=== PATIENT | female | born 1970 | race Caucasian/White ===

== ENCOUNTER 2018-08-14 06:13 | Day surgery (SDC) | payer BC, SELFPAY ==
[2018-07-10 13:17] VITALS: BMI 43.7
[2018-08-14 06:32] VITALS: BP 147/94; PULSE 78; RESP 16; TEMP 36.6; O2SAT 97; BMI 47.4
[2018-08-14 06:41] LABS: Internal QC Validated? YES +Cl - CLEAR BKGD; Pregnancy, Urine Negative Negative
--- NOTE | 2018-08-14 07:47 | HP.PCM_ITS ---
Problem List (1) History of colon cancer Status: Acute Comment: 2013 History of Present Illness Date of Admission: 08/14/18 The patient is a 47 year old F for evaluation for colonoscopy. Patient had a endoscopy back in 2002 she was noticed to have a obstructing colon lesion in the distal transverse colon she subsequently underwent a extended right hemicolectomy with ileal descending colon anastomosis en bloc resection of omentum and a loop ileostomy. She has since had her loop ileostomy taken down she is been moving her bowels normally but she has never had a repeat colonoscopy since 2012. She was being seen by her oncology physician who subsequently recommended to see me to obtain a colonoscopy. She has been moving her bowels normally she does not experience diarrhea he has had no fluctuations in her weight. She had a difficult bowel prep and needed to use Phenergan to control her nausea and vomiting. She states that her bowel movements have been yellow liquid now. Past Medical History Past Medical History (Chronic Problems): Chronic Problems (Last Reviewed 07/10/18 @ 13:23 by Nathan Newmna MD) Intertriginous dermatitis associated with moisture (Chronic) Morbid obesity (Chronic) Frequent headaches (Chronic) Anxiety (Chronic) Anemia (Chronic) Medical History: Medical History (Last Reviewed 07/10/18 @ 13:23 by Nathan Newman MD) History of pneumonia (Acute) Z87.01 History of blood transfusion (Acute) Z92.89 with cancer treatment Frequent headaches (Chronic) R51 History of colon cancer (Acute) Z85.038 2012 Allergies No Known Allergies Allergy (Verified 07/21/18 09:32) Home Medications: Ambulatory Orders Medication Instructions Recorded acetaminophen 325 mg tablet 650 mg PO Q4H PRN 07/19/17 Nystatin [Nyata] 1 applic TOPICAL BID PRN 07/21/18 Surgical History: Surgical History (Last Reviewed 07/10/18 @ 13:23 by Nathan Newman MD) History of colon resection Z98.890, Z90.49 2013 History of hernia repair Z98.890, Z87.19 2015 history of ostomy reversal 2014 Surgical History: noncontributory Smoking Status: Never smoker Tobacco Use: Non-smoker - *Family History Maternal Family History: Family History (Last Reviewed 07/10/18 @ 13:23 by Nathan Newman MD) Mother Hypertension Father Diabetes Hypertension Liver disease Grandmother Asthma Grandfather Heart disease Myocardial infarction, Onset Age: 60 Review of Systems Constitutional: Denies: Chills, Fever, Weight Change Cardiovascular: Denies: Chest Pain, Chest Pressure, Chest Tightness, Palpitati ons Respiratory: Denies: Cough, Hemoptysis, Shortness of breath at rest, Shortness of breath upon exertion, Wheezing Gastrointestinal: Denies: Abdominal Pain, Constipation, Diarrhea, Hematemesis, Nausea, Melena, Vomiting VTE Information - Inpt Only VTE Present on Admission: No VTE Mechan Device Prophylaxis: None VTE Pharm Prophylaxis ordered?: No Reason prophylaxis not ordered:: Treatment Not Indicated - Physical Exam General: Alert, Oriented x3 Lungs: Clear to auscultation Cardiovascular: Regular rate, Regular Rhythm, No murmurs Abdomen: Bowel Sounds Present, Soft, Non Tender, Non-Distended Vital Signs Temp Pulse Resp BP Pulse Ox 97.8 F 78 16 147/94 H 97 08/14/18 06:32 08/14/18 06:32 08/14/18 06:32 08/14/18 06:32 08/14/18 06:32 Oxygen Delivery Method Room Air Weight: 321 lb 3.416 oz Body Mass Index (BMI) 47.4 Laboratory Tests Past 24 Hrs 08/14/18 06:25 Urine Test Negative Assessment/Plan All Active Problems (Last Reviewed 07/10/18 @ 13:23 by Nathan Newman MD) History of pneumonia (Acute) History of blood transfusion (Acute) History of colon cancer (Acute) Plan will be to perform a colonoscopy. Risk benefits have been reviewed with the patient and the patient agrees to proceed.
[2018-08-14 07:51] VITALS: BP 131/73; BP 147/94; PULSE 76; RESP 18; TEMP 35.9; O2SAT 97
--- NOTE | 2018-08-14 07:52 | OP.ENDO_ITS ---
08/14/2018 Yrn Weinberg MD [address] [place] [address] [place] [address] Re : Colonoscopy procedure for Priscilla Manzo Dear Dr. Weinberg This procedure was performed on July. My impressions and recommendations are as follows: Impressions : - Diverticulosis in the sigmoid colon. - Non-bleeding internal hemorrhoids. - The examination was otherwise normal. - No specimens collected. Recommendations : - Discharge patient to home. - Resume previous diet. - Continue present medications. - Await pathology results. - Repeat colonoscopy in 5 years for surveillance. - Return to referring physician at appointment to be scheduled. My findings are described in the full procedure note, which is enclosed. If I can be of further assistance, please feel free to contact me at Doctor phone number(s): , Fax: [phone], Work: . Sincerely, MD Nathan De La O MD 08/14/2018 7:52:05 AM This report has been signed electronically.
[2018-08-14 07:55] VITALS: BP 123/70; BP 147/94; PULSE 73; RESP 18; O2SAT 95
[2018-08-14 08:00] VITALS: BP 131/70; BP 147/94; PULSE 72; RESP 18; O2SAT 95
[2018-08-14 08:05] VITALS: BP 117/65; BP 147/94; PULSE 70; RESP 18; TEMP 36.7; O2SAT 98
[2018-08-14 08:32] VITALS: BP 147/94
== END 2018-08-14 08:40 | disposition home or self-care (01) ==
LOC: EN 06:15 → AC 06:16 → ACINP 09:21
PROVIDERS: Anesthesiology; Family Provider Internal Medicine; PCP Internal Medicine; Referring Provider Surgery; Visit Provider Surgery
PROC: 0DJD8ZZ Inspection of Lower Intestinal Tract, Via Natural or Artificial Opening Endoscopic (ICD-10-PCS; CPT 45378; principal; 2018-08-14 07:25)
DX: Z85.038 Personal history of other malignant neoplasm of large intestine (principal); K57.30 Diverticulosis of large intestine without perforation or abscess without bleeding; K64.8 Other hemorrhoids; C78.7 Secondary malignant neoplasm of liver and intrahepatic bile duct; E66.01 Morbid (severe) obesity due to excess calories; Z68.42 Body mass index [BMI] 45.0-49.9, adult; Z90.49 Acquired absence of other specified parts of digestive tract; Z98.0 Intestinal bypass and anastomosis status
CPT/HCPCS: G0105; 81025; J7120; A4216; J1610

== ENCOUNTER 2018-11-13 15:35 | Emergency (ER) | payer BC, SELFPAY ==
[2018-11-13 15:36] VITALS: BP 158/86; PULSE 71; RESP 16; TEMP 36.7; O2SAT 96; BMI 45.1
[2018-11-13 15:43] VITALS: RESP 18
--- NOTE | 2018-11-13 15:49 | CT_ITS ---
STUDY: CT ABDOMEN AND PELVIS WITH CONTRAST REASON FOR EXAM: Female, 47 years old. Bilateral flank pain. RADIATION DOSAGE (If Supplied By Facility): CTDIvol = ( 13.75 ) mGy, DLP = ( 1457.56 ) mGycm TECHNIQUE: Transaxial images were obtained from the dome of the diaphragm to the symphysis pubis without oral contrast. 100mL IV/Oral Isovue 300 was administered. Sagittal and coronal images were reconstructed. Individualized dose optimization techniques were used for this CT. COMPARISON: October 07, 2013 FINDINGS: There is a granuloma within the right middle lobe. The visualized portions of the heart are within normal limits. Normal liver. There are stable surgical clips adjacent to the posterior and lateral aspect of the liver. There are surgical clips in the gallbladder fossa consistent with a prior cholecystectomy. Normal spleen. Normal pancreas. Normal bilateral adrenal glands. Normal right kidney. There is a too small to characterize low-attenuation focus within the anterior left kidney that likely reflect underlying cyst. Normal visualized stomach. Normal small intestine. There are anastomotic sutures noted within the region of the descending sigmoid colon junction. There is evidence of a prior partial colectomy. Normal abdominal aorta. Normal inferior vena cava. Normal retroperitoneum. Normal urinary bladder. Within the left adnexa there is a 2.5 x 3.7 x 3.7 cm well-circumscribed low-attenuation rounded focus. There are postsurgical changes along the anterior abdominal wall. There is no adjacent stranding. There are diffuse degenerative changes of the visualized lumbar spine. CT/Abdomen/Pelvis WITH Contrast IMPRESSION: No acute intra-abdominal process. Postsurgical changes along the anterior abdominal wall. 2.5 x 3.7 x 3.7 cm left adnexal cystic focus, consider pelvic ultrasound for further evaluation. Electronically Signed: Alethea Ortiz MD at 18:07 EDT Tel , Service support ,
--- NOTE | 2018-11-13 15:52 | ED.VIS.GEN ---
History of Present Illness Chief Complaint: Abd Pain Informant: Patient Onset: Yesterday Narrative: Left upper quadrant abdominal pain bilateral flank pain since yesterday. No nausea or vomiting. No diarrhea. History of colon cancer 5 years ago with partial colectomy and chemotherapy. Reports 2 weeks ago was at [place], had abdominal pain diagnosed with free air in abdomen. She was sent to [facility] due to physicians being there. They reviewed the images, they could not find the region of perforation, she was medically managed on antibiotics. She is currently on Augmentin for total 14 days. Denies fever. Pain currently 6 out of 10. States going on vacation tomorrow, states pain is not as severe as 2 weeks ago. Does complain of urine frequency. Prior similar symptoms: Yes Past Medical History - Allergies and Home Meds Allergies/Adverse Reactions: Allergies No Known Allergies Allergy (Verified 11/13/18 15:38) Primary Care Physician: Yrn Weinberg MD [Primary Care Provider] - Surgical History: noncontributory Smoking Status: Never smoker Review of Systems General: Denies: Chills, Fever, Sweats Eyes: Denies: Visual changes - bilaterally, Diplopia ENT: Denies: Rhinorrhea, Sore throat Cardiovascular: Denies: Chest pain, Palpitations Respiratory: Denies: Dyspnea, Cough, Dyspnea on exertion Gastrointestinal: Reports: Abdominal pain. Denies: Nausea, Vomiting, Diarrhea, Melena, Hematochezia Genitourinary: Reports: Frequency. Denies: Dysuria, Hematuria Musculoskeletal: Reports: Back pain. Denies: Extremity Pain Skin: Denies: Rash, Wounds Neurological: Denies: Headache, Weakness, Numbness Physical Exam Vital Signs/Narrative: Vital Signs Temp Pulse Resp BP Pulse Ox 11/13/18 15:43 18 11/13/18 15:36 98.0 F 71 16 158/86 H 96 Inital Vital Signs reviewed: Yes General: Well nourished, Well developed, No Acute Distress Head: Normocephalic, Atraumatic Eyes: Perrl, EOMI ENT: Moist mucous membranes, No rhinorrhea Neck: Supple, Nontender Cardiovascular: Regular rate, Regular rhythm, No murmurs Respiratory: No distress, CTA bilaterally, Chest nontender Abdomen: Soft, Nontender, Nondistended, Normal bowel sounds. Negative for: Guarding - Is worrisome for cancer, Rebound tenderness Back: Nontender, Normal Inspection, - - No rash 71 Extremities: Nontender, No edema Skin: Normal color, No rash Neurological: Alert, Oriented x3, Cranial nerves II-XII grossly intact, Normal Strength, Normal Sensation Psychological: Normal affect, Normal Mood Diagnostic/Tx/Re-eval Abnormal Lab Results 11/13/18 11/13/18 11/13/18 16:15 16:15 16:15 WBC 7.4 RBC 4.86 Hgb 12.5 Hct 39.8 MCV 81.9 MCH 25.7 L MCHC 31.4 L RDW 14.6 RDW Differential 42.7 Plt Count 191 MPV 12.4 H Immature Gran % (Auto) 0.100 Neut % (Auto) 75.2 H Lymph % (Auto) 16.1 L [place] % (Auto) 5.9 Eos % (Auto) 2.3 Baso % (Auto) 0.4 Absolute Neuts (auto) 5.6 Absolute Lymphs (auto) 1.20 Total Counted Not Reportable Sodium 138 Potassium 4.1 Chloride 107 Carbon Dioxide 27.0 Anion Gap 4 L BUN 14 Creatinine 0.68 Estim Creat Clear Calc 112.98 Est GFR (MDRD) Af Amer 119 Est GFR (MDRD) Non-Af 99 BUN/Creatinine Ratio 20.5 H Glucose 92 Lactic Acid Calcium 9.2 Total Bilirubin 0.40 AST 19 ALT 32 Alkaline Phosphatase 76 Total Protein 8.1 Albumin 3.6 Globulin 4.5 H Albumin/Globulin Ratio 0.8 L Lipase 84 Urine Color Yellow Urine Clarity Clear Urine pH 6.0 Ur Specific [place] 1.020 Urine Protein 15 H Urine Glucose (UA) Normal Urine Ketones Negative Urine Occult Blood 10 H Urine Nitrite Negative Urine Bilirubin Negative Urine Urobilinogen Normal Ur Leukocyte Esterase 100 H Urine RBC 0-5 SEEN Urine WBC 0-5 SEEN Ur Squamous Epith Cells 0-5 SEEN Urine Bacteria 1+ Hyaline Casts 0-5 SEEN Urine Mucus 1+ 11/13/18 16:25 WBC RBC Hgb Hct MCV MCH MCHC RDW RDW Differential Plt Count MPV Immature Gran % (Auto) Neut % (Auto) Lymph % (Auto) [place] % (Auto) Eos % (Auto) Baso % (Auto) Absolute Neuts (auto) Absolute Lymphs (auto) Total Counted Sodium Potassium Chloride Carbon Dioxide Anion Gap BUN Creatinine Estim Creat Clear Calc Est GFR (MDRD) Af Amer Est GFR (MDRD) Non-Af BUN/Creatinine Ratio Glucose Lactic Acid 0.8 Calcium Total Bilirubin AST ALT Alkaline Phosphatase Total Protein Albumin Globulin Albumin/Globulin Ratio Lipase Urine Color Urine Clarity Urine pH Ur Specific [place] Urine Protein Urine Glucose (UA) Urine Ketones Urine Occult Blood Urine Nitrite Urine Bilirubin Urine Urobilinogen Ur Leukocyte Esterase Urine RBC Urine WBC Ur Squamous Epith Cells Urine Bacteria Hyaline Casts Urine Mucus CT abdomen pelvis with p.o. and IV contrast: No free air, there is a 3.7 x 3.7 x 2.5 cm left adnexal cyst. - Medical Decision Making Patient nonsurgical abdomen, vital signs stable. With patient reported recent history of intra-abdominal free air on oral antibiotics. Work-up initiated labs stable lactic acid normal contrast CT negative for free air did note left adnexal cyst region. Patient nontender in this region. She does have a rail layer. Discussed monitoring for signs and symptoms and pain in that area. Her urine did note leukocytes and bacteria I sent this for culture with patient currently on Augmentin, will hold antibiotics at this time pending culture results. She will finish her antibiotics. She will follow-up as an outpatient. All questions were answered. ED Disposition - Plan for ED Patient: Disposition: Home or Assisted Living Diagnosis: Abdominal pain Instructions: ED Abdominal Pain Unkn Cause Referrals: Yrn Weinberg MD [Primary Care Provider] - 5-7 Days Additional Instructions: 3.7 x 3.7 x 2.5 cm left adnexal cyst structure. Follow-up with your rail layer and monitoring for pain left pelvis. Abdominal scan negative for any free air. Finish your antibiotics her urine was sent for culture pending results.
[2018-11-13] MEDS: 0.9% Normal Saline 1,000 ML 125 ML IV (16:32)
[2018-11-13 16:40] LABS: Absolute Neutrophil Count 5.6 X10^3/uL (2.0-7.7); Basophil# 0.03 X10^3/uL; Basophil% 0.4 % (0-1); Eosinophil# 0.17 X10^3/uL; Eosinophils% 2.3 % (0-5); Hematocrit 39.8 % (37-47); Hemoglobin 12.5 g/dl (12.0-15.0); Lymphocyte % 16.1 % (19-41); Mean Corp Hgb Conc 31.4 g/gl (32-36); Mean Corpuscular Hgb 25.7 pg (27.0-32.0); Mean Corpuscular Volume 81.9 fL (81-99); Mean Platelet Vol. 12.4 fl (6.2-12.0); Monocyte# 0.44 X10^3/uL; Monocyte% 5.9 % (0-10); Neutrophil # 5.59 X10^3/uL (2.7-7.7); Neutrophil % 75.2 % (47-70); Platelet Count 191 K/mm3 (150-450); RBC Distribution Width CV 14.6 % (11.6-14.6); RBC Distribution Width SD 42.7 fl (35.1-43.9); Red Blood Count 4.86 M/mm3 (4.2-5.4); White Blood Count 7.4 K/mm3 (4.4-11.0)
[2018-11-13 16:41] LABS: Color, Urine Yellow (Yellow); Glucose, Dipstick Normal (Normal); Ketone-Dipstick Negative (Negative); Leukocyte Esterase-Dipstick 100 /ul (Negative); Nitrite-Dipstick Negative (Negative); Occult Blood-Urine 10 /ul (Negative); Protein-Dipstick 15 mg/dl (Negative); Urine Bilirubin Dipstick Negative (Negative); Urine Clarity Clear (Clear); Urine Urobilinogen Normal (Normal)
[2018-11-13 16:42] LABS: POSITIVE COUNT NO; POSITIVE DIFFERENTIAL NO; POSITIVE MORPHOLOGY NO
[2018-11-13 16:53] LABS: Red Blood Cells-Urine 0-5 SEEN /hpf (0-5)
[2018-11-13 16:54] LABS: ALB/GLOB Ratio 0.8 RATIO (0.9-2.4); AST(SGOT) 19 U/L (15-37); Alanine Aminotransfer ALT/SGPT 32 U/L (13-56); Albumin, Serum 3.6 g/dL (3.2-5.0); Alkaline Phosphatase 76 U/L (45-117); Anion Gap 4 (5-15); BUN 14 mg/dL (7-18); BUN/Creat Ratio 20.5 RATIO (10-20); Bacteria 1+ /hpf (None Seen); Calcium,Total 9.2 mg/dL (8.5-10.1); Chloride 107 mmol/L (98-107); Creatinine, Serum 0.68 mg/dL (0.55-1.02); EST Glomerular Filtration Rate 99 mL/min (>60); Est Glom Filt Rate - Afr Amer 119 mL/min (>60); Estimated Creatinine Clearance 112.98 ml/min; Globulin 4.5 g/dL (2.2-4.2); Glucose 92 mg/dL (74-106); Hyaline Cast 0-5 SEEN /lpf (0-5); Lipase 84 U/L (73-393); Mucous, Urine 1+ /hpf (<or=2+); Potassium 4.1 mmol/L (3.5-5.1); Protein, Total 8.1 g/dL (6.4-8.2); Sodium Level 138 mmol/L (136-145); Squamous Epithelial Cells - UA 0-5 SEEN /hpf (5-10); White Blood Cells 0-5 SEEN /hpf (0-5)
[2018-11-13 16:58] LABS: Lactic Acid 0.8 mmol/L (0.4-2.0)
[2018-11-13 18:36] VITALS: BP 153/83; PULSE 81; RESP 16; O2SAT 95
== END 2018-11-13 18:37 | disposition home or self-care (01) ==
PROVIDERS: Emergency Provider Emergency Medicine; Family Provider Internal Medicine; PCP Internal Medicine
DX: R10.9 Unspecified abdominal pain (principal); N83.8 Other noninflammatory disorders of ovary, fallopian tube and broad ligament; Z85.038 Personal history of other malignant neoplasm of large intestine
CPT/HCPCS: 36591; 74177; 80053; 81001; 83605; 83690; 85025; 87086; 96360; 96361; 99284; J7030; Q9967; A4216

== ENCOUNTER → 2019-04-02 14:00 | Outpatient (CLI) | payer BC, SELFPAY ==
[2019-04-02 16:07] VITALS: BMI 45.1
[2019-04-03 10:34] LABS: Bacteria 0 SEEN /hpf (None Seen); Mucous, Urine 0 SEEN /hpf (<or=2+); Red Blood Cells-Urine 0 SEEN /hpf (0-5); White Blood Cells 0 SEEN /hpf (0-5)
[2019-04-03 12:47] LABS: Color, Urine Yellow (Yellow); Glucose, Dipstick Normal (Normal); Ketone-Dipstick Negative (Negative); Leukocyte Esterase-Dipstick Negative /ul (Negative); Nitrite-Dipstick Negative (Negative); Occult Blood-Urine Negative /ul (Negative); Protein-Dipstick Negative (Negative); Urine Bilirubin Dipstick Negative (Negative); Urine Clarity Sl. Cloudy (Clear); Urine Urobilinogen Normal (Normal)
[2019-04-03 13:05] LABS: Squamous Epithelial Cells - UA 0-5 SEEN /hpf (5-10)
== END ==
PROVIDERS: Family Provider Internal Medicine; PCP Internal Medicine; Visit Provider Internal Medicine
DX: R30.0 Dysuria (principal)
CPT/HCPCS: 81001; 87086; 87088

== ENCOUNTER → 2021-04-12 | Outpatient (CLI) | payer OTHER, SELFPAY ==
[2021-04-12 14:42] LABS: Bacteria 0 SEEN /hpf (None Seen); Mucous, Urine 0 SEEN /hpf (<or=2+); Red Blood Cells-Urine 0 SEEN /hpf (0-5); White Blood Cells 0 SEEN /hpf (0-5)
[2021-04-12 16:41] LABS: Color, Urine Yellow (Yellow); Glucose, Dipstick Normal (Normal); Ketone-Dipstick Negative (Negative); Leukocyte Esterase-Dipstick Negative /ul (Negative); Nitrite-Dipstick Negative (Negative); Occult Blood-Urine Negative /ul (Negative); Protein-Dipstick Negative (Negative); Urine Bilirubin Dipstick Negative (Negative); Urine Clarity Clear (Clear); Urine Urobilinogen Normal (Normal)
[2021-04-12 17:12] LABS: Squamous Epithelial Cells - UA 0-5 SEEN /hpf (5-10)
== END | disposition home or self-care (01) ==
LOC: LABSPEC 14:41
PROVIDERS: PCP Internal Medicine; Referring Provider Nurse Practitioner Family; Visit Provider Nurse Practitioner Family
DX: R30.0 Dysuria (principal)
CPT/HCPCS: 81001; 87086; 87088

== ENCOUNTER → 2022-03-23 | Outpatient (CLI) | payer OTHER, SELFPAY ==
[2022-03-23 12:05] LABS: Absolute Lymphocyte Count 1.52 X10^3/uL (0.83-4.51); Absolute Neutrophil Count 4.2 X10^3/uL (2.0-7.7); Basophil# 0.04 X10^3/uL; Basophil% 0.6 % (0-1); Eosinophil# 0.16 X10^3/uL; Eosinophils% 2.5 % (0-5); Hematocrit 41.9 % (37-47); Hemoglobin 12.8 g/dL (12.0-15.0); Lymphocyte # 1.52 X10^3/ul (0.83-4.51); Lymphocyte % 23.9 % (19-41); Mean Corp Hgb Conc 30.5 g/dL (32-36); Mean Corpuscular Hgb 26.7 pg (27.0-32.0); Mean Corpuscular Volume 87.5 fL (81-99); Mean Platelet Vol. 11.7 fl (6.2-12.0); Monocyte% 6.3 % (0-10); NRBC Flagged by Analyzer 0 % (0-5); Neutrophil # 4.18 X10^3/uL (2.7-7.7); Neutrophil % 65.9 % (47-70); Platelet Count 226 K/mm3 (150-450); RBC Distribution Width CV 14.4 % (11.6-14.6); Red Blood Count 4.79 M/mm3 (4.2-5.4); White Blood Count 6.4 K/mm3 (4.4-11.0)
[2022-03-23 13:03] LABS: ALB/GLOB Ratio 0.8 RATIO (0.9-2.4); AST(SGOT) 22 U/L (15-37); Alanine Aminotransfer ALT/SGPT 27 U/L (13-56); Albumin, Serum 3.5 g/dL (3.2-5.0); Alkaline Phosphatase 78 U/L (45-117); Anion Gap 5 (5-15); BUN 13 mg/dL (7-18); BUN/Creat Ratio 17.4 RATIO (10-20); Calcium,Total 9.2 mg/dL (8.5-10.1); Chloride 107 mmol/L (98-107); Cholesterol 190 mg/dL (200); Creatinine, Serum 0.75 mg/dL (0.55-1.02); EST Glomerular Filtration Rate 88 mL/min (>60); Est Glom Filt Rate - Afr Amer 106 mL/min (>60); Globulin 4.3 g/dL (2.2-4.2); Glucose 86 mg/dL (74-106); High Density Lipoprotein 48 mg/dL; Potassium 4.6 mmol/L (3.5-5.1); Protein, Total 7.8 g/dL (6.4-8.2); Sodium Level 141 mmol/L (136-145); Triglycerides 99 mg/dL; Very Low Density Lipoprotein 20 mg/dL (5-40)
== END | disposition home or self-care (01) ==
PROVIDERS: PCP Internal Medicine; Referring Provider Internal Medicine; Visit Provider Internal Medicine
DX: I10 Essential (primary) hypertension (principal)
CPT/HCPCS: 36415; 80053; 80061; 85025

== ENCOUNTER → 2024-01-21 | Outpatient (CLI) | payer OTHER, SELFPAY ==
[2024-01-21 12:03] LABS: Absolute Lymphocyte Count 1.06 X10^3/uL (0.83-4.51); Absolute Neutrophil Count 4.3 X10^3/uL (2.0-7.7); Basophil# 0.05 X10^3/uL; Basophil% 0.8 % (0-1); Eosinophils% 3.3 % (0-5); Hemoglobin 12.8 g/dL (12.0-15.0); Lymphocyte # 1.06 X10^3/ul (0.83-4.51); Lymphocyte % 17.7 % (19-41); Mean Corp Hgb Conc 28.4 g/dL (32-36); Mean Corpuscular Hgb 24.4 pg (27.0-32.0); Mean Corpuscular Volume 85.9 fL (81-99); Mean Platelet Vol. 12.2 fl (6.2-12.0); Monocyte# 0.41 X10^3/uL; Monocyte% 6.8 % (0-10); NRBC Flagged by Analyzer 0 % (0-5); Neutrophil # 4.25 X10^3/uL (2.7-7.7); Neutrophil % 71.1 % (47-70); Platelet Count 235 K/mm3 (150-450); RBC Distribution Width CV 16.1 % (11.6-14.6); RBC Distribution Width SD 49.6 fl (35.1-43.9); Red Blood Count 5.24 M/mm3 (4.2-5.4)
[2024-01-21 12:28] LABS: ALB/GLOB Ratio 0.7 RATIO (0.9-2.4); AST(SGOT) 22 U/L (15-37); Alanine Aminotransfer ALT/SGPT 23 U/L (13-56); Albumin, Serum 3.2 g/dL (3.2-5.0); Alkaline Phosphatase 78 U/L (45-117); Anion Gap 5 (5-15); BUN 10 mg/dL (7-18); BUN/Creat Ratio 13.8 RATIO (10-20); Calcium,Total 8.6 mg/dL (8.5-10.1); Chloride 109 mmol/L (98-107); Cholesterol 169 mg/dL (200); Creatinine, Serum 0.72 mg/dL (0.55-1.02); EST Glomerular Filtration Rate 90 mL/min (>60); Est Glom Filt Rate - Afr Amer 109 mL/min (>60); Globulin 4.8 g/dL (2.2-4.2); Glucose 89 mg/dL (74-106); High Density Lipoprotein 49 mg/dL; Potassium 4.8 mmol/L (3.5-5.1); Sodium Level 141 mmol/L (136-145); Thyroid Stim Hormone (TSH) 2.94 uIU/mL (0.358-3.74); Triglycerides 73 mg/dL; Very Low Density Lipoprotein 15 mg/dL (5-40)
== END | disposition home or self-care (01) ==
LOC: BIMLAB 09:46
PROVIDERS: PCP Internal Medicine; Referring Provider Physician Assistant; Visit Provider Physician Assistant
DX: E66.01 Morbid (severe) obesity due to excess calories (principal); I10 Essential (primary) hypertension
CPT/HCPCS: 36415; 80053; 80061; 84443; 85025